=== PATIENT | female | born 1975 | race Caucasian/White ===

== ENCOUNTER 2019-12-29 19:36 | Emergency (ER) | payer SELFPAY ==
[~2019-12-29] VITALS: Ht 154.9 cm; Wt 102.1 kg
[~2019-12-29 19:36] MED LIST: BUSPAR5 MG PO; HYDROCODONE BIT1 T11 PO; MOTRIN800 MG PO; PRENATAL1 TA1 PO; Percocet 325 MG1 TAB PO; SYNTHROID,LEV200 MCG PO
[2019-12-29] MEDS ORDERED: AUGMENTIN 875875 MG PO (20:28)
[2019-12-29] MEDS ORDERED: IBUPROFEN600 MG PO (20:28)
== END 2019-12-29 20:35 | disposition home or self-care (01) ==
LOC: ED 19:36
DX: S51.852A Open bite of left forearm, initial encounter (principal); S61.451A Open bite of right hand, initial encounter; E03.9 Hypothyroidism, unspecified; Z79.899 Other long term (current) drug therapy; W54.0XXA Bitten by dog, initial encounter; Y93.89 Activity, other specified; Y92.89 Other specified places as the place of occurrence of the external cause; Y99.8 Other external cause status

== ENCOUNTER 2021-03-23 11:55 | Inpatient (IN) | payer OTHER ==
[2021-03-23] VITALS (8 sets, daily range): BP systolic 117–237; BP diastolic 56–80
[~2021-03-23] VITALS: Ht 7787 cm; Wt 2.5 kg
[~2021-03-23 11:55] MED LIST changes: +AUGMENTIN 875875 MG PO; +IBUPROFEN600 MG PO
[2021-03-23 12:44] LABS: BASO % 0.2 % (0.0-1.0); EOS % 0.2 % (1.0-4.0); LYMPH # 0.6 10*3/uL (1.3-4.4); MEAN CELL VOLUME 83.9 fl (81.0-99.0); MEAN CORPUSCULAR HGB CONC 34.6 g/dl (33.0-37.0); MEAN PLATELET VOLUME 8.4 fl (9.6-12.3); MONO # 0.6 10*3/uL (0.1-1.0); MONO % 5.8 % (3.0-9.0); NEUT # 8.3 10*3/uL (2.3-7.9); NEUT % 86.9 % (47.0-73.0); PLATELET COUNT AUTOMATED 372 10*3/uL (130-400); RED BLOOD COUNT 4.65 10*6/uL (4.10-5.10); RED CELL DISTRI WIDTH 12.4 % (0-14.5); WHITE BLOOD COUNT 9.5 10*3/uL (4.8-10.8)
[2021-03-23 12:59] LABS: ALBUMIN 2.5 gm/dl (3.1-4.5); ALKALINE PHOSPHATASE 87 U/L (45-117); BUN 5 mg/dl (7-24); CHLORIDE 99 mmol/L (98-107); CREATININE 0.68 mg/dL (0.55-1.02); POTASSIUM 2.7 mmol/L (3.5-5.1); SGOT/AST 27 IU/L (3-35); SGPT/ALT 34 U/L (12-78); SODIUM 136 mmol/L (136-145); TOTAL PROTEIN 7.2 gm/dL (6.4-8.2)
[2021-03-23] MEDS ORDERED: MINIPRESS2 M1 PO (15:10)
[2021-03-23] MEDS ORDERED: LEVOTHYROXINE175 MCG PO (15:10)
[2021-03-23] MEDS ORDERED: FLUOXETINE HCL40 MG PO (15:11)
[2021-03-23] MEDS ORDERED: LAMOTRIGINE100 MG PO (15:12)
[2021-03-23] MEDS ORDERED: VITAMIN D350 MC2 PO (16:09)
[2021-03-24 00:09] VITALS: BP 142/65
[2021-03-24 06:20] LABS: BASO % 0.1 % (0.0-1.0); HEMATOCRIT 39.3 % (37.0-47.0); LYMPH # 0.5 10*3/uL (1.3-4.4); LYMPH % 7.1 % (27.0-41.0); MEAN CELL VOLUME 85.8 fl (81.0-99.0); MEAN CORPUSCULAR HGB CONC 33.8 g/dl (33.0-37.0); MEAN PLATELET VOLUME 8.5 fl (9.6-12.3); MONO # 0.3 10*3/uL (0.1-1.0); MONO % 4.6 % (3.0-9.0); NEUT # 6.1 10*3/uL (2.3-7.9); NEUT % 87.2 % (47.0-73.0); PLATELET COUNT AUTOMATED 362 10*3/uL (130-400); RED BLOOD COUNT 4.58 10*6/uL (4.10-5.10); RED CELL DISTRI WIDTH 12.5 % (0-14.5)
[2021-03-24 06:44] LABS: ALBUMIN 2.2 gm/dl (3.1-4.5); BUN 5 mg/dl (7-24); CHLORIDE 104 mmol/L (98-107); LDH 240 U/L (84-246); POTASSIUM 3.2 mmol/L (3.5-5.1); SGOT/AST 20 IU/L (3-35); SODIUM 140 mmol/L (136-145); TOTAL PROTEIN 6.9 gm/dL (6.4-8.2)
[2021-03-24 06:46] LABS: ALKALINE PHOSPHATASE 79 U/L (45-117); CREATININE 0.57 mg/dL (0.55-1.02); SGPT/ALT 34 U/L (12-78)
[2021-03-24 08:00] VITALS: BP 117/54
[2021-03-24 12:00] VITALS: BP 129/68
[2021-03-24 16:00] VITALS: BP 129/49
[2021-03-24 20:00] VITALS: BP 127/67
[2021-03-25] VITALS: BP 122/65
[2021-03-25 06:18] LABS: ALBUMIN 2.1 gm/dl (3.1-4.5); ALKALINE PHOSPHATASE 87 U/L (45-117); BUN 10 mg/dl (7-24); CHLORIDE 102 mmol/L (98-107); CREATININE 0.71 mg/dL (0.55-1.02); LDH 188 U/L (84-246); POTASSIUM 3.4 mmol/L (3.5-5.1); SGOT/AST 13 IU/L (3-35); SGPT/ALT 35 U/L (12-78); SODIUM 139 mmol/L (136-145); TOTAL PROTEIN 6.5 gm/dL (6.4-8.2)
[2021-03-25 06:19] LABS: BASO % 0.1 % (0.0-1.0); EOS # 0.1 10*3/uL (0.0-0.4); EOS % 0.9 % (1.0-4.0); HEMATOCRIT 36.8 % (37.0-47.0); LYMPH # 1.1 10*3/uL (1.3-4.4); LYMPH % 13.4 % (27.0-41.0); MEAN CELL VOLUME 86.2 fl (81.0-99.0); MEAN CORPUSCULAR HGB 28.3 pg (27.0-31.0); MEAN CORPUSCULAR HGB CONC 32.9 g/dl (33.0-37.0); MEAN PLATELET VOLUME 9.1 fl (9.6-12.3); MONO # 0.6 10*3/uL (0.1-1.0); MONO % 6.7 % (3.0-9.0); NEUT # 6.5 10*3/uL (2.3-7.9); PLATELET COUNT AUTOMATED 394 10*3/uL (130-400); RED BLOOD COUNT 4.27 10*6/uL (4.10-5.10); RED CELL DISTRI WIDTH 12.5 % (0-14.5); WHITE BLOOD COUNT 8.5 10*3/uL (4.8-10.8)
[2021-03-25 08:00] VITALS: BP 142/69
== END 2021-03-25 11:32 | disposition home or self-care (01) | DRG 177 ==
LOC: ED 11:55 → EDHOLD 14:58 → 4E 19:03
PROVIDERS: Physician Assistant; ADMIT Internal Medicine; ATTEND Internal Medicine
PROC: XW033E5 Introduction of Remdesivir Anti-infective into Peripheral Vein, Percutaneous Approach, New Technology Group 5 (ICD-10-PCS; principal; 2021-03-23)
DX: U07.1 COVID-19 (principal); J12.82 Pneumonia due to coronavirus disease 2019; J96.01 Acute respiratory failure with hypoxia; Z68.43 Body mass index [BMI] 50.0-59.9, adult; E87.6 Hypokalemia; E66.01 Morbid (severe) obesity due to excess calories; G93.2 Benign intracranial hypertension; F32.9 Major depressive disorder, single episode, unspecified; F41.1 Generalized anxiety disorder; I10 Essential (primary) hypertension; E03.9 Hypothyroidism, unspecified; E11.649 Type 2 diabetes mellitus with hypoglycemia without coma; Z80.9 Family history of malignant neoplasm, unspecified; Z83.3 Family history of diabetes mellitus; Z79.899 Other long term (current) drug therapy

== ENCOUNTER → 2022-09-23 | Outpatient (CLI) | payer MEDICARE ==
[~2022-09-23] MED LIST changes: +FLUOXETINE HCL40 MG PO; +LAMOTRIGINE100 MG PO; +LEVOTHYROXINE175 MCG PO; +MINIPRESS2 M1 PO; +VITAMIN D350 MC2 PO
== END | disposition home or self-care (01) ==
LOC: CARD 11:30
PROVIDERS: ATTEND Family Medicine
DX: I31.39 Other pericardial effusion (noninflammatory) (principal)

== ENCOUNTER 2024-09-05 07:02 | Emergency (ER) | payer MEDICARE, BC ==
[~2024-09-05] VITALS: Ht 154.9 cm; Wt 99.8 kg
[2024-09-05] MEDS ORDERED: SODIUM CHLORIDE 0.9% 1,000 ML IV ONE (08:10)
[2024-09-05] MEDS ORDERED: Ondansetron Hydrochloride 4 MG/2 ML VIAL IV ONE (08:10)
[2024-09-05 08:24] LABS: BASO % 0.5 % (0.0-1.0); EOS # 0.2 10*3/uL (0.0-0.4); EOS % 2.7 % (1.0-4.0); HEMATOCRIT 38.5 % (37.0-47.0); MEAN CELL VOLUME 78.7 fl (81.0-99.0); MEAN CORPUSCULAR HGB 24.7 pg (27.0-31.0); MEAN CORPUSCULAR HGB CONC 31.4 g/dl (33.0-37.0); MEAN PLATELET VOLUME 9.7 fl (9.6-12.3); MONO # 0.7 10*3/uL (0.1-1.0); MONO % 8.6 % (3.0-9.0); NEUT % 64.1 % (47.0-73.0); PLATELET COUNT AUTOMATED 395 10*3/uL (130-400); RED BLOOD COUNT 4.89 10*6/uL (4.10-5.10); RED CELL DISTRI WIDTH 15.9 % (0-14.5); WHITE BLOOD COUNT 7.8 10*3/uL (4.8-10.8)
[2024-09-05] MEDS ORDERED: IOHEXOL 300 MG/ML 100 ML VIAL IV ONE (08:40)
[2024-09-05 08:45] LABS: ALKALINE PHOSPHATASE 82 U/L (46-116); BUN 11 mg/dl (9-23); CHLORIDE 104 mmol/L (98-107); LIPASE 36 U/L (12-53); POTASSIUM 3.7 mmol/L (3.4-5.1); SGPT/ALT 9 U/L (5-49)
[2024-09-05] MEDS ORDERED: MAGNESIUM CITRATE 296 ML BOT PO ONE (10:35)
== END 2024-09-05 10:44 | disposition home or self-care (01) ==
LOC: ED 07:02
PROVIDERS: Internal Medicine
DX: R11.2 Nausea with vomiting, unspecified (principal); T50.995A Adverse effect of other drugs, medicaments and biological substances, initial encounter; E03.9 Hypothyroidism, unspecified; Z98.890 Other specified postprocedural states; Y92.89 Other specified places as the place of occurrence of the external cause